=== PATIENT | male | born 1955 | race Caucasian/White ===

== ENCOUNTER 2021-05-31 15:58 | Inpatient (IN) | payer OTHER ==
[~2021-05-31] VITALS: Ht 185.4 cm; Wt 103.0 kg
[~2021-05-31 15:58] MED LIST: ACETAMINOPHEN650 M5 PO; ADULT LOW DOSE81 MG PO; FISH OIL 1,0001 EAC5 PO; FISH OIL 1,0001 EAC9 PO; PAXIL20 MG PO; SIMVASTATIN80 MG PO; TRADJENTA5 MG PO
[2021-05-31 16:12] VITALS: BP 119/80
[2021-05-31 17:05] LABS: ABSOLUTE BASOPHILS 0.1 thou/uL (0.0-0.2); ABSOLUTE EOSINOPHILS 0.3 thou/uL (0.0-0.7); ABSOLUTE LYMPHOCYTES 2.3 thou/uL (0.8-5.3); ABSOLUTE MONOCYTES 0.8 thou/uL (0.0-1.2); ABSOLUTE NEUTROPHILS 6.8 thou/uL (1.6-8.1); BASOPHILS 0.9 %; EOSINOPHILS 3.1 %; HEMATOCRIT 43.4 % (42.0-52.0); HEMOGLOBIN 15.2 gm/dL (14.0-18.0); LYMPHOCYTES 21.9 %; MCH 29.9 pg (26.0-34.0); MCHC 34.9 g/dL (28.0-37.0); MCV 85.7 fL (80.0-100.0); MONOCYTES 8.1 %; MPV 8.4 fl. (7.2-11.1); NUCLEATED RBCS 0 /100WBC; PLATELET COUNT* 331 thou/uL (150-400); RBC 5.06 mil/uL (4.50-6.00); RDW-CV 13.3 % (10.5-14.5); WBC 10.3 thou/uL (4.0-11.0)
[2021-05-31 17:09] LABS: CALCIUM 8.8 mg/dL (8.5-10.1); POTASSIUM 4.2 mmol/L (3.5-5.1)
[2021-05-31 17:13] LABS: ALBUMIN 4.2 g/dL (3.4-5.0); TOTAL BILIRUBIN 1.2 mg/dL (<0.1-1.0); TOTAL PROTEIN 8.3 g/dL (6.4-8.2)
[2021-05-31 22:00] VITALS: BP 145/89
[2021-06-01] VITALS (7 sets, daily range): BP systolic 110–150; BP diastolic 57–87
[2021-06-01 19:33] LABS: CHOLESTEROL 149 mg/dL (<200); HDL CHOLESTEROL 37 mg/dL (>40); LDL CHOLESTEROL 80 mg/dL (<100); SERUM ASSESSMENT Clear; TRIGLYCERIDE 160 mg/dL (<150); VLDL 32 mg/dL (<40)
[2021-06-02 01:10] VITALS: BP 125/76
[2021-06-02 02:06] LABS: GLYCOHEMOGLOBIN (HGB A1C) 8.9 % (4.8-5.6)
[2021-06-02 12:13] VITALS: BP 126/80
--- NOTE | 2021-06-02 14:22 | EKG ---
[place] [address] ELECTROCARDIOGRAM REPORT Name: JUSTEN ISBELL Room: [address] ADM IN M.R.#: [id number] Admission: 05/31/21 Attend Phys: Cindy Shipman, Discharge: Date of : 57 Date of Service: 06/02/21 1140 Report #: [id number] THIS REPORT FOR: //name// [facility] Test Date: 2021-06-02 Test Time: 11:40:19 Pat Name: JUSTEN ISBELL Department: Room: [address] Gender: M [employer]: : 1955 Requested By: Tiffanie Woody Order Number: [id number] Gwen MD: Jerald Josue Measurements Intervals [place] Rate: 71 P: -4 IN: 170 QRS: -21 QRSD: 104 T: 33 QT: 393 QTc: 428 Interpretive Statements Sinus rhythm Borderline left axis deviation Compared to ECG 10/17/2012 11:29:56 No significant changes Electronically Signed On 06-02-2021 14:22:21 CDT by Jerald Josue [email or web address] <ELECTRONICALLY SIGNED> By: Jerald Josue MD, [facility] 06/02/21 1422 1140 1140 Jerald Josue MD, [facility] /EPI
[2021-06-02 20:00] VITALS: BP 130/82
[2021-06-03 08:00] VITALS: BP 146/90
[2021-06-03] MEDS ORDERED: VIBRAMYCIN 100100 MG PO (12:04)
[2021-06-03] MEDS ORDERED: TRADJENTA5 MG PO (12:04)
[2021-06-03] MEDS ORDERED: METFORMIN HCL500 M3 PO (12:05)
[2021-06-03] MEDS ORDERED: NORCO5 PO (12:06)
[2021-06-03 13:33] VITALS: BP 146/90
== END 2021-06-03 14:11 | disposition home or self-care (01) | DRG 580 ==
LOC: M.2W 17:53 → M.TBA-ER 17:53 → M.2W 06-01 10:07
PROVIDERS: Internal Medicine; Nurse Practitioner Family; ADMIT Internal Medicine; ATTEND Internal Medicine
PROC: 0QDR0ZZ Extraction of Left Toe Phalanx, Open Approach (ICD-10-PCS; principal; 2021-06-02)
PROC: 0Q9R0ZZ Drainage of Left Toe Phalanx, Open Approach (ICD-10-PCS; principal; 2021-06-02)
DX: L03.032 Cellulitis of left toe (principal); L02.612 Cutaneous abscess of left foot; F41.9 Anxiety disorder, unspecified; Z20.822 Contact with and (suspected) exposure to COVID-19; E11.621 Type 2 diabetes mellitus with foot ulcer; L97.529 Non-pressure chronic ulcer of other part of left foot with unspecified severity; Z87.442 Personal history of urinary calculi; Z79.899 Other long term (current) drug therapy; Z79.82 Long term (current) use of aspirin

== ENCOUNTER → 2021-06-07 | Outpatient (CLI) | payer OTHER ==
[~2021-06-07] MED LIST changes: +METFORMIN HCL500 M3 PO; +NORCO5 PO; +VIBRAMYCIN 100100 MG PO
== END ==
LOC: M.WC 13:54
PROVIDERS: ATTEND Podiatrist Foot & Ankle Surgery
DX: E11.621 Type 2 diabetes mellitus with foot ulcer (principal); L97.526 Non-pressure chronic ulcer of other part of left foot with bone involvement without evidence of necrosis; L02.612 Cutaneous abscess of left foot; L03.032 Cellulitis of left toe; E78.5 Hyperlipidemia, unspecified; E11.36 Type 2 diabetes mellitus with diabetic cataract; H26.9 Unspecified cataract; J45.909 Unspecified asthma, uncomplicated; M10.9 Gout, unspecified